=== PATIENT | female | born 1970 | race Caucasian/White ===

== ENCOUNTER 2017-12-10 10:39 | Emergency (ER) | payer BC ==
[2017-12-10 11:25] LABS: Absolute Lymphocytes (CBC) 1.2 K/uL (0.7-4.9); Absolute Monocytes 0.7 K/uL (0.1-1.3); Absolute Neutrophil 10.3 K/uL (1.8-8.0); Basophils % 0.2 % (0-1.3); Eosinophils % 0.8 % (0-4.4); Hematocrit 40.3 % (36.0-45.0); Lymphocytes % 9.6 % (15.3-44.8); MCH 30.8 pg (27.0-35.0); MCV 92.4 fL (80-100); MPV 8.9 fL (7.6-11.3); Monocytes % 5.7 % (3.3-12.3); RBC Red Blood Cell Count 4.37 M/uL (3.86-4.86)
[2017-12-10 11:28] LABS: Protime INR 1.05
[2017-12-10 11:46] LABS: ALT/SGPT 45 U/L (12-78); AST/SGOT 30 U/L (15-37); Albumin 3.7 g/dL (3.4-5.0); Alkaline Phosphatase 104 U/L (45-117); BUN Blood Urea Nitrogen 12 mg/dL (7-18); Bicarbonate 29 mmol/L (21-32); Bilirubin Direct < 0.1 mg/dL (0-0.2); Bilirubin Total 0.5 mg/dL (0.2-1.0); CKMB Creatine Kinase MB < 1.0 ng/mL (0.3-3.6); Creatine Phosphokinase 91 U/L (26-192); Glucose Level 157 mg/dL (74-106); Magnesium 2.1 mg/dL (1.8-2.4); NT PRO-BNP 122 pg/mL (<125); Protein, Total 7.5 g/dL (6.4-8.2); Sodium Level 141 mmol/L (136-145)
--- NOTE | 2017-12-10 12:31 | RAD REPORT ---
EXAM DESCRIPTION: CT - Thorax W/ Con - 12/10/2017 12:18 pm CLINICAL HISTORY: Chest pain COMPARISON: None TECHNIQUE: Computed axial tomography of the chest was obtained. 100 cc Isovue 300 was administered i ntravenously. All CT scans are performed using dose optimization technique as appropriate and may include automated exposure control or mA/KV adjustment according to patient size. FINDINGS: A 5 millimeter subpleural nodule is present within the anterior left upper lobe. The remai nder the lungs are clear. No mediastinal or hilar lymphadenopathy is seen. A 2 centimeter nodule abuts the inferior aspect of t he left lobe of the thyroid gland A pleural effusion is not present. A pericardial effusion is not present Fatty infiltration liver is noted IMPRESSION: 5 millimeter subpleural left upper lobe nodule. Per Fleischner guidelines if the patient is high risk followup CT chest in 1 year would be recommended 2 centimeter nodule abutting the left lobe of the thyroid gland probably originates from the thyroid gland. A followup ultrasound in 6 months is recommended to assess stability
--- NOTE | 2017-12-10 12:32 | RAD REPORT ---
EXAM DESCRIPTION: Dany Single View12/10/2017 11:38 am CLINICAL HISTORY: Chest pain COMPARISON: none FINDINGS: The lungs appear clear of acute infiltrate. The heart is normal size IMPRESSION: No acute abnormalities displayed
[2017-12-10 12:36] LABS: Urine Blood TRACE (NEG); Urine Glucose NEGATIVE (NEG); Urine Protein NEGATIVE (NEG); Urine Specific Gravity 1.015 (1.005-1.030)
--- NOTE | 2017-12-10 13:03 | EDPHYS ---
Physician Documentation [facility] Name: Niki Randall Age: 47 yrs Sex: Female : 1970 Arrival Date: 12/10/2017 Time: 10:43 Bed 6 Private MD: out of town, doctor ED Physician Trav Calderón HPI: 12/10 12:27 This 47 yrs old Female presents to ER via Ambulatory with complaints of Chest kdr Pressure. 12:27 The patient or guardian reports chest pain that is located primarily in the substernal kdr area. Onset: yesterday. The pain does not radiate. Associated signs and symptoms: Pertinent positives: cough, nausea, shortness of breath. The chest pain is described as aching, dull, a pressure. Duration: The patient or guardian reports a single episode, that is still ongoing, but improving. Modifying factors: The symptoms are alleviated by nothing. the symptoms are aggravated by cough, deep breath, movement, palpation of area. Severity of pain: At its worst the pain was moderate in the emergency department the pain has improved mildly. The patient has not experienced similar symptoms in the past. The patient has not recently seen a physician. The patient states that she sneezed 11 times very forcefully and has since had significant and persistent chest pressure. She states that it feels like a large dinner plate is sitting on her chest with a weight on it. 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 ae1 Historical: - Allergies: 10:58 NKA; iw - Home Meds: 10:58 losartan 50 mg oral tab 1 tab once daily [Active]; amlodipine 2.5 mg tab 1 tab once iw daily [Active]; lovastatin 40 mg Oral tab 1 tab once daily [Active]; cyclobenzaprine 10 mg Oral tab 1 tab 3 times per day [Active]; Hydrocodone-Acetaminophen Oral [Active]; - PMHx: 10:58 Hypertension; Hyperlipidemia; Diverticulitis; iw - PSHx: 10:58 colon resection; iw - Immunization history:: Adult Immunizations not up to date. - Social history:: Smoking status: Patient/guardian denies using tobacco. - Ebola Screening: : Patient negative for fever greater than or equal to 101.5 degrees Fahrenheit, and additional compatible Ebola Virus Disease symptoms Patient denies exposure to infectious person Patient denies travel to an Ebola-affected area in the 21 days before illness onset No symptoms or risks identified at this time. ROS: 12:27 Constitutional: Negative for fever, chills, and weight loss, Eyes: Negative for injury, kdr pain, redness, and discharge, ENT: Negative for injury, pain, and discharge, Neck: Negative for injury, pain, and swelling, Respiratory: Negative for shortness of breath, cough, wheezing, and pleuritic chest pain, Abdomen/GI: Negative for abdominal pain, nausea, vomiting, diarrhea, and constipation, Back: Negative for injury and pain, : Negative for injury, bleeding, discharge, and swelling, MS/Extremity: Negative for injury and deformity, Skin: Negative for injury, rash, and discoloration, Neuro: Negative for headache, weakness, numbness, tingling, and seizure activity. Psych: Negative for depression, anxiety, suicide ideation, homicidal ideation, and hallucinations, Allergy/Immunology: Negative for hives, rash, and allergies, Endocrine: Negative for neck swelling, polydipsia, polyuria, polyphagia, and marked weight changes, Hematologic/Lymphatic: Negative for swollen nodes, abnormal bleeding, and unusual bruising. 12:27 Cardiovascular: Positive for chest pain, with cough, with movement, of the anterior aspect of right upper chest, anterior aspect of left upper chest, xyphoid area, mid-sternal area, right breast and left breast, Negative for edema, orthopnea, palpitations, paroxysmal nocturnal dyspnea, acute changes. Exam: 12:27 Constitutional: This is a well developed, well nourished patient who is awake, alert, kdr and in no acute distress. Head/Face: Normocephalic, atraumatic. Eyes: Pupils equal round and reactive to light, extra-ocular motions intact. Lids and lashes normal. Conjunctiva and sclera are non-icteric and not injected. Cornea within normal limits. Periorbital areas with no swelling, redness, or edema. Neck: Trachea midline, no thyromegaly or masses palpated, and no cervical lymphadenopathy. Supple, full range of motion without nuchal rigidity, or vertebral point tenderness. No Meningismus. Chest/axilla: Normal chest wall appearance and motion. Nontender with no deformity. No lesions are appreciated. Cardiovascular: Regular rate and rhythm with a normal S1 and S2. No gallops, murmurs, or rubs. Normal PMI, no JVD. No pulse deficits. Respiratory: Lungs have equal breath sounds bilaterally, clear to auscultation and percussion. No rales, rhonchi or wheezes noted. No increased work of breathing, no retractions or nasal flaring. Abdomen/GI: Soft, non-tender, with normal bowel sounds. No distension or tympany. No guarding or rebound. No evidence of tenderness throughout. Back: No spinal tenderness. No costovertebral tenderness. Full range of motion. Skin: Warm, dry with normal turgor. Normal color with no rashes, no lesions, and no evidence of cellulitis. MS/ Extremity: Pulses equal, no cyanosis. Neurovascular intact. Full, normal range of motion. Neuro: Awake and alert, GCS 15, oriented to person, place, time, and situation. Cranial nerves II-XII grossly intact. Motor strength 5/5 in all extremities. Sensory grossly intact. Cerebellar exam normal. Normal gait. Psych: Awake, alert, with orientation to person, place and time. Behavior, mood, and affect are within normal limits. Vital Signs: 10:58 BP 127 / 90; Pulse 100; Resp 20 S; Temp 98.5(O); Pulse Ox 98% ; Pain 7/10; iw 11:55 BP 125 / 85; Pulse 96; Resp 18; Pulse Ox 98% on R/A; Weight 97.52 kg (R); ae1 12:43 BP 137 / 89; Pulse 90; Resp 17; Pulse Ox 99% on R/A; ae1 MDM: 13:02 Patient medically screened. kdr 12/10 11:08 Order name: Basic Metabolic Panel; Complete Time: 11:49 ae1 12/10 11:08 Order name: CBC with Diff; Complete Time: 11:49 ae1 12/10 11:08 Order name: Ckmb; Complete Time: 11:49 ae1 12/10 11:08 Order name: CPK; Complete Time: 11:49 ae1 12/10 11:08 Order name: LFT's; Complete Time: 11:49 ae1 12/10 11:08 Order name: Magnesium; Complete Time: 11:49 ae1 12/10 11:08 Order name: NT PRO-BNP; Complete Time: 11:49 ae12/10 11:08 Order name: PT-INR; Complete Time: 11:49 ae12/10 11:08 Order name: Ptt, Activated; Complete Time: 11:49 12/10 11:08 Order name: Troponin (emerg Dept Use Only); Complete Time: 11:49 ae12/10 11:08 Order name: XRAY Chest (1 view); Complete Time: 12:36 ae12/10 11:52 Order name: CT Chest W/ Con; Complete Time: 12:36 kdr 12/10 11:58 Order name: Urine Dipstick--Ancillary (enter results); Complete Time: 12:56 ag 12/10 11:58 Order name: Urine --Ancillary (enter results); Complete Time: 12:56 ag 12/10 11:08 Order name: EKG; Complete Time: 11:09 ae12/10 11:08 Order name: Cardiac monitoring; Complete Time: 11:09 12/10 11:08 Order name: EKG - Nurse/Tech; Complete Time: 11:09 12/10 11:08 Order name: IV Saline Lock; Complete Time: 11:09 ae12/10 11:08 Order name: Labs collected and sent; Complete Time: 11:09 12/10 11:08 Order name: O2 Per Protocol; Complete Time: 11:09 12/10 11:08 Order name: O2 Sat Monitoring; Complete Time: 11:09 12/10 11:08 Order name: Urine Dipstick-Ancillary (obtain specimen); Complete Time: 11:55 ae1 Administered Medications: 13:13 Drug: Sandy 10 mg-325 mg 1 tabs Route: PO; tw2 13:14 Drug: TORadol 30 mg Route: IVP; Site: right antecubital; tw2 13:43 Drug: Robaxin 1 grams Route: IVPB; Infused Over: 1 hrs; Site: right antecubital; ae1 Disposition: 12/10/17 13:02 Discharged to Home. Impression: Other chest pain, Chest pain on breathing. - Condition is Stable. - Discharge Instructions: Chest Wall Pain, Nonspecific Chest Pain, [id number]. - Prescriptions for Ibuprofen 800 mg Oral Tablet - take 1 tablet by ORAL route every 8 hours As needed take with food; 15 tablet. Robaxin 500 mg Oral Tablet - take 2 tablet by ORAL route every 6 hours As needed; 40 tablet. Tylenol- Codeine #3 300-30 mg Oral Tablet - take 2 tablets by ORAL route every 6 hours As needed; 12 tablet. Medrol (Noel) 4 mg Oral Tablets, Dose Pack - take 1 tablet by ORAL route as directed - follow package instructions; 1 packet. amlodipine 2.5 mg Oral tablet - take 1 tablet by ORAL route once daily; 4 tablet. losartan 50 mg Oral tablet - take 1 tablet by ORAL route once daily; 4 tablet. lovastatin 40 mg Oral tablet - take 1 tablet by ORAL route once daily; 4 tablet. - Medication Reconciliation Form, Thank You Letter, Antibiotic Education, Prescription Opioid Use, Work release form form. - Follow up: Private Physician; When: 2 - 3 days; Reason: If symptoms return, Further diagnostic work-up, Recheck today's complaints, Continuance of care, Re-evaluation by your physician. - Problem is new. - Symptoms have improved. Signatures: Dispatcher [employer] EDMS Trav Calderón MD MD kdr Cathryn Jennings RN RN iw Frieda Arriaza RN RN tw2 Fabio Miranda RN RN ae1 Corrections: (The following items were deleted from the chart) 14:31 13:02 12/10/2017 13:02 Discharged to Home. Impression: Other chest pain; Chest pain on ae1 breathing. Condition is Stable. Forms are Medication Reconciliation Form, Thank You Letter, Antibiotic Education, Prescription Opioid Use. Follow up: Private Physician; When: 2 - 3 days; Reason: If symptoms return, Further diagnostic work-up, Recheck today's complaints, Continuance of care, Re-evaluation by your physician. Problem is new. Symptoms have improved. kdr
--- NOTE | 2017-12-10 13:03 | ER ---
Nurse's Notes [facility] Name: Niki Randall Age: 47 yrs Sex: Female : 1970 Arrival Date: 12/10/2017 Time: 10:43 Bed 6 Private MD: out of town, doctor Diagnosis: Other chest pain;Chest pain on breathing Presentation: 12/10 10:54 Presenting complaint: Patient states: yesterday afternoon she started feeling a pain in iw her chest, at times feels like someone is sitting on her chest, then at times she feels very winded, had to sleep sitting up, pain is 7/10 to upper chest. Transition of care: patient was not received from another setting of care. Onset of symptoms was December 09, 2017. Risk Assessment: Do you want to hurt yourself or someone else? Patient reports no desire to harm self or others. Initial Sepsis Screen: Does the patient meet any 2 criteria? No. Patient's initial sepsis screen is negative. Does the patient have a suspected source of infection? No. Patient's initial sepsis screen is negative. Care prior to arrival: None. 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 ae1 Historical: - Allergies: 10:58 NKA; iw - Home Meds: 10:58 losartan 50 mg oral tab 1 tab once daily [Active]; amlodipine 2.5 mg tab 1 tab once iw daily [Active]; lovastatin 40 mg Oral tab 1 tab once daily [Active]; cyclobenzaprine 10 mg Oral tab 1 tab 3 times per day [Active]; Hydrocodone-Acetaminophen Oral [Active]; - PMHx: 10:58 Hypertension; Hyperlipidemia; Diverticulitis; iw - PSHx: 10:58 colon resection; iw - Immunization history:: Adult Immunizations not up to date. - Social history:: Smoking status: Patient/guardian denies using tobacco. - Ebola Screening: : Patient negative for fever greater than or equal to 101.5 degrees Fahrenheit, and additional compatible Ebola Virus Disease symptoms Patient denies exposure to infectious person Patient denies travel to an Ebola-affected area in the 21 days before illness onset No symptoms or risks identified at this time. Screenin:13 Abuse screen: Denies threats or abuse. Nutritional screening: No deficits noted. ae1 Tuberculosis screening: No symptoms or risk factors identified. Fall Risk None identified. Assessment: 11:11 Reassessment: Patient states she feels like "there is something sitting on my chest.". ae1 General: Appears uncomfortable, obese, Behavior is cooperative, anxious. Pain: Pain does not radiate. Pain: Complains of pain in chest Pain currently is 7 out of 10 on a pain scale. Pain began suddenly. Neuro: Level of Consciousness is awake, alert, obeys commands, Oriented to person, place, time, situation. Cardiovascular: Heart tones S1 S2 present Patient's skin is warm and dry. Respiratory: Airway is patent Respiratory effort is even, unlabored, Respiratory pattern is regular, symmetrical, Breath sounds are clear bilaterally. GI: Abdomen is round obese. : No signs and/or symptoms were reported regarding the genitourinary system. EENT: No signs and/or symptoms were reported regarding the EENT system. Derm: Skin is pink, warm \\T\\ dry. Musculoskeletal: No signs and/or symptoms reported regarding the musculoskeletal system. Vital Signs: 10:58 BP 127 / 90; Pulse 100; Resp 20 S; Temp 98.5(O); Pulse Ox 98% ; Pain 7/10; iw 11:55 BP 125 / 85; Pulse 96; Resp 18; Pulse Ox 98% on R/A; Weight 97.52 kg (R); ae1 12:43 BP 137 / 89; Pulse 90; Resp 17; Pulse Ox 99% on R/A; ae1 ED Course: 10:43 Patient arrived in ED. mr 10:43 out of town, doctor is Private Physician. mr 10:48 Trav Calderón MD is Attending Physician. kdr 10:48 Fabio Miranda, ALBIN is Primary Nurse. ae1 10:56 Triage completed. iw 10:59 Arm band placed on. iw 11:02 Inserted saline lock: 20 gauge in right antecubital area, using aseptic technique. ae1 Blood collected. Patient maintains SpO2 saturation greater than 95% on room air. 11:03 Placed in gown. Bed in low position. Call light in reach. Side rails up X 1. Adult w/ ae1 patient. bus driver/monitor on. Pulse ox on. NIBP on. Warm blanket given. 11:39 XRAY Chest (1 view) In Process Unspecified. EDMS 12:12 CT completed. Patient moved to CT via stretcher. Patient moved back from CT. cw1 12:18 CT Chest W/ Con In Process Unspecified. EDMS 13:39 Awaiting: completion of IV medication prior to discharge. tw2 14:30 No provider procedures requiring assistance completed. IV discontinued, intact, ae1 bleeding controlled, No redness/swelling at site. Pressure dressing applied. Administered Medications: 13:13 Drug: Sharon 10 mg-325 mg 1 tabs Route: PO; tw2 13:14 Drug: TORadol 30 mg Route: IVP; Site: right antecubital; tw2 13:43 Drug: Robaxin 1 grams Route: IVPB; Infused Over: 1 hrs; Site: right antecubital; ae1 Outcome: 13:02 Discharge ordered by . kdr 14:31 Discharged to home ambulatory, with significant other. ae1 14:31 Condition: stable 14:31 Discharge instructions given to patient, significant other, Instructed on discharge instructions, follow up and referral plans. medication usage, Demonstrated understanding of instructions, Prescriptions given X 4. 14:31 Patient left the ED. ae1 Signatures: Dispatcher [employer] EDMS Trav Calderón MD MD kdr Rivera, Maria mr Cathryn Jennings, Dinorah Mayo RN cw1 Frieda Arriaza RN RN tw2 Fabio Miranda RN RN ae1
[2017-12-10] MEDS ORDERED: HYDROCODONE/APAP 10/325 TAB ONE (13:08)
[2017-12-10] MEDS ORDERED: KETOROLAC 30 MG/ML INJ ONE (13:09)
[2017-12-10] MEDS ORDERED: METHOCARBAMOL 1,000 MG/10 ML VIAL IV ONE (13:09)
[2017-12-10] MEDS ORDERED: METHOCARBAMOL 1,000 MG in NA CHLORIDE 0.9% 100 ML IV SCH (14:00)
--- NOTE | 2017-12-11 10:56 | EKG ---
Test Date: 2017-12-10 Test Time: 10:57:51 Health Safety Engineer: GABINO MEASUREMENT RESULTS: Intervals: Rate: 97 GA: 142 QRSD: 94 QT: 358 QTc: 454 [place]: P: 39 GA: 142 QRS: -2 T: 24 INTERPRETIVE STATEMENTS: Normal sinus rhythm Normal ECG No previous ECG available for comparison Electronically Signed On 12-11-17 10:56:27 CDT by Andrew Garay
== END 2017-12-10 14:31 | disposition home or self-care (01) ==
LOC: ER 10:39
DX: R07.1 Chest pain on breathing (principal); I10 Essential (primary) hypertension; E78.5 Hyperlipidemia, unspecified
CPT/HCPCS: 36415; 71045; 71260; 80048; 80076; 81003; 81025; 82550; 82553; 83735; 83880; 84484; 85025; 85610; 85730; 93005; 96374; 96375; 99285; J2800; Q9967